=== PATIENT | male | born 1960 | race Caucasian/White ===

== ENCOUNTER 2020-01-08 07:32 | Day surgery (SDC) | payer SELFPAY ==
[2019-12-31 16:52] LABS: BASOPHILS # (AUTO) 0.1 X10'3 (0-0.2); EOSINOPHILS # (AUTO) 0.4 X10'3 (0-0.9); EOSINOPHILS % (AUTO) 5.9 % (0-6); LYMPHOCYTES # (AUTO) 2.4 X10'3 (1.1-4.8); LYMPHOCYTES % (AUTO) 31.4 % (21-51); MEAN CORPUSCULAR HEMOGLOBIN 28.7 PG (27.0-31.0); MEAN CORPUSCULAR HGB CONC 33.5 g/dL (33.0-36.5); MEAN CORPUSCULAR VOLUME 85.7 FL (78-98); MEAN PLATELET VOLUME 7.5 FL (7.4-10.4); MONOCYTES # (AUTO) 0.7 X10'3 (0-0.9); MONOCYTES % (AUTO) 9.3 % (2-12); NEUTROPHILS # (AUTO) 3.9 X10'3 (1.8-7.7); NEUTROPHILS % (AUTO) 52.4 % (42-75); PRE OP HEMATOCRIT 42.4 % (42.0-52.0); PRE OP HEMOGLOBIN 14.2 g/dL (14.0-17.9); PRE OP PLATELET COUNT 292 X10'3 (140-440); RED BLOOD COUNT 4.95 X10'6 (4.70-6.10); RED CELL DISTRIBUTION WIDTH 14.4 % (11.5-14.5)
[2019-12-31 17:07] LABS: ALBUMIN/GLOBULIN RATIO 1.2 (1.1-1.5); ALKALINE PHOSPHATASE 84 IU/L (46-116); BLOOD UREA NITROGEN 19 MG/DL (7-18); BUN/CREATININE RATIO 20.9 (5.4-32.0); CALCIUM 8.9 MG/DL (8.5-10.1); CHLORIDE 107 MMOL/L (99-107); CREATININE 0.91 MG/DL (0.60-1.10); PRE OP ALT 26 U/L (30-65); PRE OP ANION GAP 7 (8-16); PRE OP AST 20 U/L (10-37); PRE OP BILIRUB, TOTAL 0.4 MG/DL (0.0-1.0); PRE OP GLUCOSE 81 MG/DL (70-104); PRE OP POTASSIUM 3.7 MMOL/L (3.4-5.1); PRE OP SODIUM 143 MMOL/L (135-145); TOTAL CARBON DIOXIDE 28.7 MMOL/L (24-32); TOTAL PROTEIN 7.4 G/DL (6.4-8.2); eGFR 85 ML/MIN
[2020-01-08] VITALS (13 sets, daily range): BP systolic 135–173; BP diastolic 83–95
[~2020-01-08] VITALS: Ht 182.9 cm; Wt 79.4 kg
[~2020-01-08 07:32] MED LIST: NO HOME MEDS; cefazolin/dext.iso 2gm/50ml 50 ML IV ONE; famotidine 20mg tablet PO ONE; ringers solution, lacted 1,000 ML IV SCH
[2020-01-08] MEDS ORDERED: ringers solution, lacted 1,000 ML IV SCH (10:26)
[2020-01-08] MEDS ORDERED: proCHLORperazine 10 MG/2 ml inj IV PRN (10:30)
[2020-01-08] MEDS ORDERED: meperidine/PF 25mg/ml syringe IV PRN ×3 (10:30)
[2020-01-08] MEDS ORDERED: morphine 2 MG/ML inj. syringe IV PRN (10:30)
[2020-01-08] MEDS ORDERED: ondansetron/PF 4mg/2ml inj IV PRN (10:30)
[2020-01-08] MEDS ORDERED: morphine 4 MG/ML inj SYRINge IV PRN (10:30)
[2020-01-08] MEDS ORDERED: LIDOcaine 1% w/epiNEPHrine 1:200,000 30ml vial ONE (10:57)
[2020-01-08] MEDS ORDERED: BUPIVAcaine/PF 2.5 mg/ml (0.25%) 30ml vial ONE (10:57)
[2020-01-08] MEDS ORDERED: sevoflurane 250ml liquid IH ONE (11:04)
[2020-01-08] MEDS ORDERED: neostigmine methylsulfate 1 MG/ML 10ml vial ONE (11:04)
[2020-01-08] MEDS ORDERED: fentaNYL/PF 50MCG/1 ML 2ML syringe ONE ×2 (11:08→12:32)
[2020-01-08] MEDS ORDERED: midazolam 2 mg/2 ml injection ONE (11:08)
[2020-01-08] MEDS ORDERED: LIDOcaine 1% 30ml preserv. free vial ONE (11:14)
[2020-01-08] MEDS ORDERED: LIDOcaine 2% (20mg/ml) 5ml vial ONE (12:30)
[2020-01-08] MEDS ORDERED: ePHEDrine 50MG/ML INJ. ONE (12:30)
[2020-01-08] MEDS ORDERED: ondansetron/PF 4mg/2ml inj ONE (12:30)
[2020-01-08] MEDS ORDERED: propofol inj 20 ML IV ONE (12:30)
[2020-01-08] MEDS ORDERED: dexamethasone sod phosphate 4mg/ml inj. ONE (12:30)
[2020-01-08] MEDS ORDERED: rocuronium 10mg/ml inj IV ONE (12:30)
[2020-01-08] MEDS ORDERED: glycopyrrolate 0.2mg/ml inj ONE (12:30)
--- NOTE | 2020-01-08 12:43 | NUR ---
Received from OR via [facility], accompanied by Anesthesiologist DR TENORIO and report given by Anesthesiologist. PT RESTLESS, PAINFUL, PAIN MEDICATION GIVEN BY DR TENORIO W/GOOD RESULTS, ABDOMEN W/3 LAP SITES W/BANDAIDS CDI. Addendum: 01/08/20 at 1334 by Karen Tan RN Amended: Links added.
[2020-01-08] MEDS ORDERED: oxyCODONE/APAP 5-325mg tablet PO PRN (12:55)
[2020-01-08] MEDS ORDERED: ketorolac trometh. 30mg/ml inj. ONE (13:08)
--- NOTE | 2020-01-08 15:03 | NUR ---
PT UP AND AMBULATING W/O DIFFICULTY, PT VOIDED, D/C INSTRUCTIONS GIVEN AND GONE OVER W/PT WHO VERBALIZED UNDERSTANDING, PT GIVEN PAIN PILL FOR RIDE HOME, PT D/CD TO HOME VIA W/C TO PRIVATE VEHICLE W/O INCIDENT. Addendum: 01/08/20 at 1525 by Karen Tan RN Amended: Links added.
== END 2020-01-08 15:03 | disposition home or self-care (01) ==
LOC: PAS 07:32
PROVIDERS: ATTEND Surgery
DX: K40.90 Unilateral inguinal hernia, without obstruction or gangrene, not specified as recurrent (principal); Z72.89 Other problems related to lifestyle; R10.9 Unspecified abdominal pain
CPT/HCPCS: 36415; 80053; 82948; 85025; 93005; A4215; A4618; C1781; J1100; J1885; J2001; J2250; J2405; J2704; J2710; J3010; J3490; J7120